=== PATIENT | female | born 1990 | race Caucasian/White ===

== ENCOUNTER 2017-04-18 06:44 | Emergency (ER) | payer OTHER | END 2017-04-18 07:50 | disposition home or self-care (01) | LOC: FER 06:44 | DX: T25.222A Burn of second degree of left foot, initial encounter (principal); X15.8XXA Contact with other hot household appliances, initial encounter | CPT/HCPCS: 99283 ==

== ENCOUNTER 2017-05-13 09:15 | Emergency (ER) | payer OTHER | END 2017-05-13 09:40 | disposition home or self-care (01) | LOC: FER 09:15 | DX: O99.89 Other specified diseases and conditions complicating pregnancy, childbirth and the puerperium (principal); M75.92 Shoulder lesion, unspecified, left shoulder; Z3A.01 Less than 8 weeks gestation of pregnancy | CPT/HCPCS: 99283 ==